=== PATIENT | female | born 1990 | race Caucasian/White ===

== ENCOUNTER 2017-08-03 19:26 | Inpatient (IN) | payer OTHER ==
[~2017-08-03] VITALS: Ht 154.9 cm; Wt 52.2 kg
[~2017-08-03 19:26] MED LIST: APAP/HYDROCODON1 T13 PO; CLINDAMYCIN300 M1 PO; COL100 PO; COL250 PO; FERATAB300 MG PO; LAC PO; NORCO1 TA2 PO; VITAMIN C250 M1 PO
[2017-08-03 19:46] VITALS: Ht 154.9 cm; Wt 52.2 kg
[2017-08-03 21:44] LABS: BASOPHIL % 0.5 % (0-2); PLATELET COUNT 421 x10^3mcL (130-400); RED CELL DISTRIBUTION WIDTH 13.1 % (11.5-14.5)
[2017-08-03 21:50] LABS: CALCIUM 8.2 mg/dL (8.5-10.1); CARBON DIOXIDE 30.3 mmol/L (21-32); CHLORIDE SERUM 107 mmol/L (98-107); CREATININE SERUM 0.8 mg/dL (0.6-1.0); GFR1 > 60 mL/min; GLUCOSE SERUM 82 mg/dL (74-106); POTASSIUM SERUM 3.2 mmol/L (3.5-5.1); SODIUM SERUM 143 mmol/L (136-145)
[2017-08-03 21:54] LABS: ALKALINE PHOSPHATASE 67 U/L (46-116); ALT/SGPT 17 U/L (14-59); AMYLASE 51 U/L (25-115); AST/SGOT 15 U/L (15-37); BILIRUBIN TOTAL 0.14 mg/dL (0.20-1.00); LIPASE 107 IU/L (73-393); TOTAL PROTEIN, SERUM 6.3 g/dL (6.4-8.2)
[2017-08-03 21:55] LABS: ALBUMIN 2.2 g/dL (3.4-5.0)
[2017-08-03 23:00] LABS: UA SPECIFIC GRAVITY >=1.030 (1.005-1.035); microscopic required? YES; urine erythrocyte NEGATIVE (NEGATIVE)
[2017-08-03 23:38] LABS: AMPHETAMINE QUAL UR POSITIVE (NEG <=1000)
[2017-08-04 01:22] VITALS: BP 102/55
[2017-08-04 05:36] VITALS: BP 98/52
[2017-08-04 05:45] LABS: MAGNESIUM 1.7 mg/dL (1.8-2.4); PHOSPHOROUS 4.2 mg/dL (2.5-4.9)
[2017-08-04 05:46] LABS: CHOLESTEROL/HDL RATIO 2.8
[2017-08-04 06:06] LABS: FREE T4 1.08 ng/dL (0.76-1.46); FREE THYROXINE INDEX 2.3 ug/dL (1.4-4.5)
[2017-08-04 06:09] LABS: T3 TOTAL 1.41 ng/mL
[2017-08-04 07:41] LABS: CALCIUM 7.6 mg/dL (8.5-10.1); CARBON DIOXIDE 24.1 mmol/L (21-32); CHLORIDE SERUM 111 mmol/L (98-107); CREATININE SERUM 0.7 mg/dL (0.6-1.0); GFR1 > 60 mL/min; GLUCOSE SERUM 86 mg/dL (74-106); POTASSIUM SERUM 3.8 mmol/L (3.5-5.1); SODIUM SERUM 141 mmol/L (136-145)
[2017-08-04 07:48] LABS: IRON 19 ug/dL (50-170)
[2017-08-04 07:49] LABS: TOTAL IRON BINDING CAPACITY 207 ug/dL (250-450)
[2017-08-04 08:42] VITALS: BP 92/51
[2017-08-04 08:57] LABS: PLATELET COUNT 389 x10^3mcL (130-400); RED BLOOD CELLS 3.32 M/mm3 (4.10-5.10); RED CELL DISTRIBUTION WIDTH 13.8 % (11.5-14.5)
[2017-08-04 17:11] VITALS: BP 100/56
[2017-08-04 21:18] VITALS: BP 102/52
[2017-08-05 05:12] VITALS: BP 108/73
[2017-08-05 07:54] LABS: BASOPHIL % 0.5 % (0-2); RED CELL DISTRIBUTION WIDTH 13.5 % (11.5-14.5)
[2017-08-05 08:09] LABS: PLATELET COUNT 446 x10^3mcL (130-400)
[2017-08-05 08:14] LABS: CALCIUM 8.1 mg/dL (8.5-10.1); CARBON DIOXIDE 26.3 mmol/L (21-32); CHLORIDE SERUM 106 mmol/L (98-107); CREATININE SERUM 0.7 mg/dL (0.6-1.0); GFR1 > 60 mL/min; GLUCOSE SERUM 86 mg/dL (74-106); MAGNESIUM 1.8 mg/dL (1.8-2.4); PHOSPHOROUS 3.2 mg/dL (2.5-4.9); POTASSIUM SERUM 4.2 mmol/L (3.5-5.1); SODIUM SERUM 139 mmol/L (136-145)
[2017-08-05 09:31] VITALS: BP 109/57
[2017-08-05] MEDS ORDERED: FER300 PO (12:20)
[2017-08-05] MEDS ORDERED: VITC PO (12:21)
[2017-08-05 12:42] VITALS: BP 133/72
[2017-08-05 17:06] VITALS: BP 106/63
[2017-08-05 21:43] VITALS: BP 100/52
[2017-08-06 05:20] VITALS: BP 103/60
[2017-08-06 07:22] LABS: BASOPHIL % 0.5 % (0-2)
[2017-08-06 07:40] LABS: CALCIUM 7.8 mg/dL (8.5-10.1); CARBON DIOXIDE 25.4 mmol/L (21-32); CHLORIDE SERUM 108 mmol/L (98-107); CREATININE SERUM 0.6 mg/dL (0.6-1.0); GFR1 > 60 mL/min; GLUCOSE SERUM 87 mg/dL (74-106); MAGNESIUM 1.5 mg/dL (1.8-2.4); PHOSPHOROUS 3.8 mg/dL (2.5-4.9); POTASSIUM SERUM 4.1 mmol/L (3.5-5.1); SODIUM SERUM 142 mmol/L (136-145)
[2017-08-06 07:45] LABS: PLATELET COUNT 425 x10^3mcL (130-400)
[2017-08-06] MEDS ORDERED: BACDS PO (07:55)
[2017-08-06] MEDS ORDERED: FLA500 PO (07:56)
[2017-08-06] MEDS ORDERED: LAC PO (07:57)
[2017-08-06 08:49] VITALS: BP 104/59
[2017-08-06 12:46] VITALS: BP 104/59
== END 2017-08-06 13:24 | disposition home or self-care (01) | DRG 245 ==
LOC: ED 19:26 → DU 23:44
PROVIDERS: Emergency Medicine; Family Medicine
PROC: 0JBR0ZZ Excision of Left Foot Subcutaneous Tissue and Fascia, Open Approach (ICD-10-PCS; principal; 2017-08-04)
DX: K51.00 Ulcerative (chronic) pancolitis without complications (principal); N17.0 Acute kidney failure with tubular necrosis; E43 Unspecified severe protein-calorie malnutrition; L89.893 Pressure ulcer of other site, stage 3; M86.8X7 Other osteomyelitis, ankle and foot; E83.42 Hypomagnesemia; N39.0 Urinary tract infection, site not specified; D64.9 Anemia, unspecified; E87.6 Hypokalemia; F15.10 Other stimulant abuse, uncomplicated; D47.3 Essential (hemorrhagic) thrombocythemia; F17.210 Nicotine dependence, cigarettes, uncomplicated; Z88.8 Allergy status to other drugs, medicaments and biological substances; Z88.0 Allergy status to penicillin; Z68.21 Body mass index [BMI] 21.0-21.9, adult; Q05.9 Spina bifida, unspecified
CPT/HCPCS: 83880; 84439; 87046; 87046-59; J1885; J3475; J7030; Q0092